=== PATIENT | female | born 1930 | race Caucasian/White ===

== ENCOUNTER 2017-06-24 23:58 | Observation (INO) ==
[2017-06-25] MEDS ORDERED: Nitroglycerin 0.4 MG TAB.SUBL SL ONE (00:31)
[2017-06-25] MEDS ORDERED: Aspirin 81 MG TAB.CHEW PO ONE (00:31)
[2017-06-25] MEDS ORDERED: 0.9 % Sodium Chloride 500 ML IVC ONE (00:31)
--- NOTE | 2017-06-25 00:36 | Emergency Department Note ---
Disposition Clinical Impression: Chest pain Qualifiers: Chest pain type: unspecified Qualified Code(s): R07.9 - Chest pain, unspecified Afib Qualifiers: Atrial fibrillation type: unspecified Qualified Code(s): I48.91 - Unspecified atrial fibrillation Hypertension Qualifiers: Hypertension type: unspecified Qualified Code(s): I10 - Essential (primary) hypertension Disposition: Admitted As Inpatient Condition: Fair Time of Disposition: 01:56 Chest Pain HPI - General Chief Complaint: ED Chest Pain Stated Complaint: cp/dizzy/high blood pressure Time Seen by Provider: 06/25/17 00:16 Source: patient Mode of arrival: ambulatory Limitations: no limitations Vital Signs Reviewed: Yes Nursing Notes Reviewed: Yes - History of Present Illness HPI Narrative: 86-year-old female history of A. fib, CVA in the past on an oral anticoagulant presents for evaluation of chest pain dizziness and high blood pressure. Patient states she has had intermittent chest pain over the past couple days but noted an episode today. Describes this chest heaviness nonexertional with associated left arm pain. Patient states that the pain has since resolved. Patient also has dizziness upon standing. Patient states that she feels unsteady on her feet. Is on a blood thinner but denies any dark tarry stools or blood in the stool. Patient does state she has a history of GI bleed in the past requiring surgical resection of her bowel. Patient denies any dyspnea. Patient does note some nausea but no vomiting or diaphoresis. Severity scale (1-10): 2 - Related Data Home Medications Medication Instructions Recorded Confirmed Lisinopril [Zestril] 10 mg PO DAILY 12/29/15 04/13/17 Nitroglycerin [Nitrostat] 0.4 mg SL AD PRN 12/29/15 04/13/17 Pravastatin Sodium [Pravachol] 40 mg PO DAILY 12/29/15 04/13/17 Apixaban [Eliquis] 5 mg PO BID 01/30/17 04/13/17 Metoprolol XL (24 HR) Succ [Toprol 50 mg PO DAILY 02/01/17 04/13/17 Xl] Allergies Allergy/AdvReac Type Severity Reaction Status Date / Time Penicillins Allergy Hives Verified 04/13/17 13:53 All systems ED: reviewed and negative except as stated. Constitutional: Denies: fever Cardiovascular: Reports: chest pain Respiratory: Reports: dyspnea. Denies: cough Gastrointestinal: Reports: nausea. Denies: abdominal pain, vomiting Chest Pain PMH - Past Medical History Medical history: Reports: cancer, CHF, CVA, hyperlipidemia, hypertension Surgical history: Reports: appendectomy, cholecystectomy, hysterectomy Psychiatric history: Reports: no psych history - Social History Smoking Status: Never smoker Alcohol use: Reports: none Drug use: Reports: none Physical Exam - General Limitations: no limitations General appearance: alert, in no apparent distress - Head Head exam: atraumatic, normocephalic, normal inspection - Eye Eye exam: Present: normal appearance, PERRL, EOMI - ENT ENT exam: normal exam - Neck Neck exam: Present: normal inspection - Chest Chest inspection: Present: normal inspection - Respiratory Respiratory exam: Present: normal lung sounds bilaterally. Absent: respiratory distress - Cardiovascular Cardiovascular exam: Present: regular rate, normal rhythm. Absent: systolic murmur - Abdominal Exam Abdominal exam: Present: soft, Non-Tender - Extremities Exam Extremities exam: Present: normal inspection, pedal edema (Trace) - Back Exam Back exam: Present: normal inspection - Neurological Exam Neurological exam: Present: alert, oriented X3, CN II-XII intact - Skin Skin exam: Present: warm, dry, intact, normal color Course Course Narrative: Patient seen and examined. Patient appears in no acute distress. Patient does have a concerning history of chest pain. Patient will get nitroglycerin and aspirin. Patient will likely require admission for further evaluation. Vital Signs Temperature 98.3 F 06/25/17 00:06 Pulse Rate 103 06/25/17 00:06 Respiratory Rate 16 06/25/17 00:06 Blood Pressure 187/127 06/25/17 00:06 O2 Sat by Pulse Oximetry 97 06/25/17 00:06 Temperature 98.3 F 06/25/17 00:06 Pulse Rate 81 06/25/17 02:00 Respiratory Rate 16 06/25/17 02:00 Blood Pressure 178/108 06/25/17 02:00 O2 Sat by Pulse Oximetry 94 06/25/17 02:00 Oxygen Delivery Oxygen Delivery Nasal Cannula Chest Pain - MDM Narrative Medical decision making narrative: 86-year-old female patient for evaluation of chest pain, dizziness and high blood pressure. Patient does have a history of A. fib and was noted to be A. fib with borderline tachycardia however has remained hemodynamically stable in the ER. Patient's been describing several days intermittently of chest heaviness. Patient noted worsening heaviness today which lasted a resolve spontaneously. Associated with some left arm pain. Patient denied needing diaphoresis or vomiting. Patient is on Eliquis for the A. fib. Given the patient's atypical chest pain earlier today the patient would likely need a more thorough cardiopulmonary evaluation with a stress test. Patient's dizziness appears to be related to position and standing. Likely secondary to A. fib and a regular rhythm. Patient did not get a head CT as she describes no episodes of trauma and has a nonfocal exam. - Lab Data Lab results reviewed: Yes I reviewed the patient's lab results. Result diagrams: 06/25/17 00:29 06/25/17 00:29 Lab Results 06/25/17 06/25/17 06/25/17 Range/Units 00:29 00:29 00:29 WBC 6.1 (4.3-11.1) K/mcL RBC 4.37 (3.82-4.97) M/mcL Hgb 13.1 (11.5-15.4) g/dL Hct 39.6 (35.3-44.9) % MCV 90.6 (83.0-100.0) fL MCH 30.0 (28.0-33.3) pg MCHC 33.1 (31.6-35.5) g/dL RDW 14.1 (11.5-14.5) % Plt Count 158 (140-400) K/mcL MPV 10.5 (9.4-12.4) fL Immature Gran % 0.3 (0-4) % Seg Neutrophils % 73.4 % Lymphocytes % 20.3 % Monocytes % 5.4 % Eosinophils % 0.3 % Basophils % 0.3 % Neutrophils # 4.5 (1.6-8.9) K/mcL Lymphocytes # 1.2 (0.6-4.6) K/mcL Monocytes # 0.3 (0.0-1.3) K/mcL Eosinophils # 0.0 (0.0-0.6) K/mcL Basophils # 0.0 (0.0-0.2) K/mcL PT 14.3 H (9.4-12.1) Seconds INR 1.3 APTT 30.8 (26.0-36.0) Seconds Sodium (136-145) mEq/L Potassium (3.5-5.1) mEq/L Chloride (98-107) mEq/L Carbon Dioxide (23-29) mEq/L BUN (8-23) mg/dL Creatinine (0.60-1.20) mg/dL Est GFR ( Amer) (> 60) Est GFR (Non-Af Amer) (> 60) BUN/Creatinine Ratio (6-26) Glucose (70-105) mg/dL Calculated Osmolality (280-300) Calcium (8.6-10.3) mg/dL Troponin I (< 0.04) ng/mL B-Natriuretic Peptide 221 H (Less than 100) pg/mL Urine Color (Yellow) Urine Clarity (Clear) Urine pH (5.0-8.0) pH Units Ur Specific [place] (1.010-1.025) Urine Protein (Neg-Trace) mg/dL Urine Glucose (UA) (Normal) mg/dL Urine Ketones (Negative) mg/dL Urine Blood (Negative) Urine Nitrite (Negative) Urine Bilirubin (Negative) Urine Urobilinogen (Normal) mg/dL Ur Leukocyte Esterase (Negative) Urine Microscopic RBC (0-3) per hpf Urine Microscopic WBC (0-3) per hpf Ur Squamous Epith Cells (None-Few) per lpf Urine Bacteria (None-Few) per hpf Hyaline Casts (None-Few) per lpf 06/25/17 06/25/17 06/25/17 Range/Units 00:29 00:29 01:09 WBC (4.3-11.1) K/mcL RBC (3.82-4.97) M/mcL Hgb (11.5-15.4) g/dL Hct (35.3-44.9) % MCV (83.0-100.0) fL MCH (28.0-33.3) pg MCHC (31.6-35.5) g/dL RDW (11.5-14.5) % Plt Count (140-400) K/mcL MPV (9.4-12.4) fL Immature Gran % (0-4) % Seg Neutrophils % % Lymphocytes % % Monocytes % % Eosinophils % % Basophils % % Neutrophils # (1.6-8.9) K/mcL Lymphocytes # (0.6-4.6) K/mcL Monocytes # (0.0-1.3) K/mcL Eosinophils # (0.0-0.6) K/mcL Basophils # (0.0-0.2) K/mcL PT (9.4-12.1) Seconds INR APTT (26.0-36.0) Seconds Sodium 140 (136-145) mEq/L Potassium 4.1 (3.5-5.1) mEq/L Chloride 108 H (98-107) mEq/L Carbon Dioxide 25 (23-29) mEq/L BUN 21 (8-23) mg/dL Creatinine 1.09 (0.60-1.20) mg/dL Est GFR ( Amer) 57 L (> 60) Est GFR (Non-Af Amer) 47 L (> 60) BUN/Creatinine Ratio 19 (6-26) Glucose 122 H (70-105) mg/dL Calculated Osmolality 294 (280-300) Calcium 9.5 (8.6-10.3) mg/dL Troponin I < 0.03 (< 0.04) ng/mL B-Natriuretic Peptide (Less than 100) pg/mL Urine Color Yellow (Yellow) Urine Clarity Clear (Clear) Urine pH 7.0 (5.0-8.0) pH Units Ur Specific [place] 1.012 (1.010-1.025) Urine Protein Negative (Neg-Trace) mg/dL Urine Glucose (UA) Normal (Normal) mg/dL Urine Ketones Negative (Negative) mg/dL Urine Blood Negative (Negative) Urine Nitrite Negative (Negative) Urine Bilirubin Negative (Negative) Urine Urobilinogen Normal (Normal) mg/dL Ur Leukocyte Esterase Small H (Negative) Urine Microscopic RBC 0-3 (0-3) per hpf Urine Microscopic WBC 5-15 H (0-3) per hpf Ur Squamous Epith Cells Moderate H (None-Few) per lpf Urine Bacteria None Seen (None-Few) per hpf Hyaline Casts None Seen (None-Few) per lpf - Radiology Data Radiology results reviewed: Yes I reviewed the patient's radiology results. Chest X-Ray 06/25/17 00:31 IMPRESSION: No acute disease. D/ / Yinka Vegas MD / Yinka Vegas MD Interpreting Provider: Yinka Vegas MD - EKG Data EKG attestation: Yes I reviewed and interpreted this EKG. Rate: tachycardia Rhythm: A.Fib [place]/QRS: left axis deviation Q waves: III T wave inversions noted in: v1 Interpretation: no acute changes, nonspecific ST-T wave changes Heart Score - Score History: Moderately Suspicious EKG: Non Specific repolarisation Disturbance Age: Greater than 65 Risk Factors: 1-2 risk factors Troponin: Less than normal limit HEART Score Total: 5 S.B.A.R. - S.B.A.RKanwal Situation: Demographics Background: Presenting Complaint Assessment: Vital Signs, Course and respsone to treatment, Patient/Family Expectation Recommendation: Barrier(s) to disposition, Recommendation based on pending studies, treatments, or consults S.B.A.R. Report Given to: Dr. Alexandre Donovan Repor Time: 01:56 Attestation Statement - Attestation Attestation: I, Cisco East DO, examined this patient [id number] and my medical decision-making was reviewed with Dr. Javon Hall, Resident Physician. I agree with the documented findings, disposition and treatment plan as described except to the extent set forth below. Please see my progress notes for details. 86-year-old female presents emergency room complaining of chest discomfort pain and generalized malaise. She denies any recent illnesses fevers chills nausea vomiting or diarrhea. She also describes some intermittent dizziness and high blood pressure. Currently denying chest pain. Denies any trauma or injury. She is currently on request and metoprolol secondary to elevated blood pressure and atrial fibrillation. Vital signs are stable on presentation except for slightly elevated heart rate in the 95-105 pulse range. Blood pressure was elevated at 185-195 systolic in the emergency room. Physical exam shows a well- appearing pleasant lean confused 86-year-old female. Head is atraumatic pupils are equal round reactive to light extraocular muscles are intact. Her lungs are clear heart is regular. Abdomen is soft nontender nondistended with no guarding no rigidity and no peritoneal-like symptoms. She moves all 4 extremities without any difficulty. She ambulated into the emergency room. Family says that she is acting appropriately at this time. Secondary to the patient having chest discomfort and pain along with the atrial fibrillation and intermittent RVR patient will have detailed cardiac evaluation completed today include a chest x-ray labs including screening N abnormalities troponin. EKG was collected showing stable evaluation but patient does have what appears to be atrial fibrillation. Vital signs remain stable with elevated blood pressure. Disposition most of admission the hospital for definitive management. See detailed documentation of the physical exam, medical intervention, medical decision-making and disposition of the resident physician' s note. No critical care provider this patient's treatment course at this time. 0200 Patient has had no acute signs of cardiac arrhythmia at this point onset is stable A. fib. Patient will be admitted for definitive management of chest pain. Vital signs stable. Workup has been unremarkable. Symptomatic control to be completed in the hospital setting. No other recommendations from the hospitalist at this time. Slightly elevated BNP appears to be chronic. No acute intervention required at this point
[2017-06-25 00:39] LABS: Basophils % 0.3 %; Eosinophils % 0.3 %; Hematocrit 39.6 % (35.3-44.9); Hemoglobin 13.1 g/dL (11.5-15.4); Immature Granulocytes % 0.3 % (0-4); Lymphocytes # 1.2 K/mcL (0.6-4.6); Lymphocytes % 20.3 %; Mean Corpuscular HGB Conc 33.1 g/dL (31.6-35.5); Mean Corpuscular Volume 90.6 fL (83.0-100.0); Mean Platelet Volume 10.5 fL (9.4-12.4); Monocytes # 0.3 K/mcL (0.0-1.3); Monocytes % 5.4 %; Neutrophils # 4.5 K/mcL (1.6-8.9); Platelet Count 158 K/mcL (140-400); Red Blood Count 4.37 M/mcL (3.82-4.97); Red Cell Distribution Width 14.1 % (11.5-14.5); Segmented Neutrophils % 73.4 %
[2017-06-25 00:47] LABS: INR 1.3; Prothrombin Time 14.3 Seconds (9.4-12.1)
[2017-06-25 00:49] LABS: Activated Partial Thrombo Time 30.8 Seconds (26.0-36.0)
[2017-06-25 00:56] LABS: Calcium 9.5 mg/dL (8.6-10.3); Potassium 4.1 mEq/L (3.5-5.1)
[2017-06-25 01:21] LABS: Bilirubin,Urine Negative (Negative); Blood,Urine Negative (Negative); Clarity,Urine Clear (Clear); Color,Urine Yellow (Yellow); Glucose,Urine (UA) Normal (Normal); Ketones,Urine Negative (Negative); Leukocyte Esterase,Urine Small (Negative); Nitrite,Urine Negative (Negative); Protein,Urine Negative (Neg-Trace); Specific Gravity,Urine 1.012 (1.010-1.025); Urobilinogen,Urine Normal (Normal)
[2017-06-25 01:23] LABS: Bacteria,Urine None Seen per hpf (None-Few); Hyaline Casts,Urine None Seen per lpf (None-Few); RBC,Urine 0-3 per hpf (0-3); Squamous Epithelial Cell,Urine Moderate per lpf (None-Few)
--- NOTE | 2017-06-25 03:12 | Internal Med History&Physical ---
Date of Encounter: 06/25/17 Time of Encounter: 02:30 Assessment and Plan (1) Chest pain Current visit: Yes Status: Acute Qualifiers: Chest pain type: unspecified Qualified Code(s): R07.9 - Chest pain, unspecified (2) Atrial fibrillation Current visit: Yes Status: Chronic Qualifiers: Atrial fibrillation type: paroxysmal Qualified Code(s): I48.0 - Paroxysmal atrial fibrillation (3) History of stroke Current visit: No Status: Chronic Code(s): Z86.73 - Personal history of transient ischemic attack (TIA), and cerebral infarction without residual deficits (4) Diabetes Current visit: No Status: Chronic Qualifiers: Diabetes mellitus type: type 2 Diabetes mellitus complication status: with kidney complications Diabetes mellitus complication detail: with chronic kidney disease 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 Grayson is a 86 year old female 86-year-old woman presented in the ER complaining of retrosternal chest discomfort pain which she describes as dull and radiating to her neck. She uncertain of associated sympoms. She denies fevers chills nausea vomiting or diarrhea. Her BP was elevated prior to coming to the ER. Her ECG shows A-fiv with a rate in the low 100s and her initial Troponin is wnl. Her BP was initially elevated as high as 185-195 systolic but is now controlled and her chest pain is resolved. She is now hemodynamically stable and will be admitted for further w/u including a stress test. Past Med Surg Social Fam HX - Past Medical History Medical history: cancer, CHF, CVA, hyperlipidemia, hypertension Psychiatric history: no psych history - Past Surgical History Surgical History: appendectomy, cholecystectomy, hysterectomy - Social History Smoking Status: Never smoker Smokeless Tobacco Status: No Alcohol use: none Drug use: none - Family History Father Adopted: Yes Family Member Ethnicity: Non- Living Status: Age at : 57 Cause of : heart attack Hx Family Cardiac Disorders: Yes Internal Medicine - H&P: Meds Lisinopril [Zestril] 10 mg PO DAILY 12/29/15 [History] Nitroglycerin [Nitrostat] 0.4 mg SL AD PRN 12/29/15 [History] Pravastatin Sodium [Pravachol] 40 mg PO DAILY 12/29/15 [History] Apixaban [Eliquis] 5 mg PO BID 01/30/17 [History] Metoprolol XL (24 HR) Succ [Toprol Xl] 50 mg PO DAILY 02/01/17 [History] 3 Allergy/AdvReac Type Severity Reaction Status Date / Time Penicillins Allergy Hives Verified 04/13/17 13:53 All Systems PM: A 10-system review of systems was performed and is negative for pertinent findings except as documented above in the HPI. - Constitutional Constitutional: no anorexia, no chills, no falls, no malaise, no weight gain - EENT Eyes: no decreased night vision, no diplopia, no discharge, no loss of vision, no photophobia, no spots in vision - Cardiovascular Cardiovascular ROS IM: lightheadedness, no claudication, no diaphoresis, no dyspnea on exertion, no paroxysmal nocturnal dyspnea, no syncope - Respiratory Respiratory: no cough, no dyspnea, no wheezing, no stridor, no pain on inspiration, no pain with cough - Gastrointestinal Gastrointestinal: no belching, no change in bowel habits, no change in stool character, no coffee ground emesis, no diarrhea, no dysphagia, no hematemesis, no hematochezia, no loose stools, no vomiting - Musculoskeletal Musculoskeletal ROS IM: no atrophy, no back pain, no limited range of motion, no muscle weakness, no numbness, no stiffness - Integumentary Integumentary IM: no non-healing lesions, no rash - Neurological Neurological ROS: no abnormal hearing, no abnormal speech, no lack of coordination, no memory loss, no paresthesias - Psychiatric Psychiatric: no auditory hallucinations, no behavioral changes, no difficulty concentrating, no homicidal ideation, no suicidal ideation - Hematologic/Lymphatic Hematologic/Lymphatic: easy bruising - Allergic/Immunologic Allergic/Immunologic: no throat swelling, no wheezing, no GI upset with certain foods - Constitutional Vitals: Temp Pulse Resp BP Pulse Ox 98.3 F 92 16 163/89 98 06/25/17 00:06 06/25/17 02:21 06/25/17 02:21 06/25/17 02:21 06/25/17 02:21 Internal Med - H&P Results - Labs CBC & Chem 7: 06/25/17 00:29 06/25/17 00:29
[2017-06-25 05:16] LABS: Basophils % 0.4 %; Eosinophils % 0.7 %; Hematocrit 33.7 % (35.3-44.9); Immature Granulocytes % 0.2 % (0-4); Lymphocytes # 1.5 K/mcL (0.6-4.6); Lymphocytes % 27.7 %; Mean Corpuscular HGB Conc 33.2 g/dL (31.6-35.5); Mean Corpuscular Volume 90.3 fL (83.0-100.0); Mean Platelet Volume 10.5 fL (9.4-12.4); Monocytes # 0.4 K/mcL (0.0-1.3); Monocytes % 8.1 %; Neutrophils # 3.4 K/mcL (1.6-8.9); Platelet Count 133 K/mcL (140-400); Red Blood Count 3.73 M/mcL (3.82-4.97); Segmented Neutrophils % 62.9 %
[2017-06-25 05:19] LABS: Hemoglobin 11.2 g/dL (11.5-15.4); INR 1.4; Prothrombin Time 15.5 Seconds (9.4-12.1)
[2017-06-25 05:31] LABS: Albumin 3.6 g/dL (3.5-5.7); Albumin/Globulin Ratio 1.6 (1.1-2.2); Bilirubin,Total 0.6 mg/dL (0.3-1.0); Calcium 8.9 mg/dL (8.6-10.3); Globulin 2.2 g/dL (2.4-3.5); Magnesium 2.1 mg/dL (1.6-2.6); Potassium 3.8 mEq/L (3.5-5.1); Total Protein 5.8 g/dL (6.4-8.9)
[2017-06-25] MEDS ORDERED: Regadenoson 0.4 MG/5 ML SYRINGE IVP ONE (06:04)
[2017-06-25] MEDS ORDERED: Apixaban 5 MG TABLET PO SCH (09:15)
[2017-06-25] MEDS ORDERED: Metoprolol XL (24 HR) Succ 50 MG TAB.ER.24H PO SCH (09:15)
--- NOTE | 2017-06-25 09:44 | Electrocardiograph Report ---
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
[2017-06-25] MEDS ORDERED: Metoprolol XL (24 HR) Succ 50 MG TAB.ER.24H PO STA (13:39)
[2017-06-25 15:23] VITALS: BP 169/95
[2017-06-25 16:41] LABS: Adenovirus Not Detected (Not Detect); Bordetella Pertussis Not Detected (Not Detect); Chlamydophila pneumoniae Not Detected (Not Detect); Coronavirus 229E Not Detected (Not Detect); Coronavirus HKU1 Not Detected (Not Detect); Coronavirus NL63 Not Detected (Not Detect); Coronavirus OC43 Not Detected (Not Detect); Human Metapneumovirus Not Detected (Not Detect); Human Rhinovirus/Enterovirus Not Detected (Not Detect); Influenza A Subtype 2009 H1 Not Detected (Not Detect); Influenza A Untypeable Not Detected (Not Detect); Influenza B Not Detected (Not Detect); Mycoplasma pneumoniae Not Detected (Not Detect); Parainfluenza Virus 1 Not Detected (Not Detect); Parainfluenza Virus 2 Not Detected (Not Detect); Parainfluenza Virus 3 Not Detected (Not Detect); Parainfluenza Virus 4 Not Detected (Not Detect); Respiratory Syncytial Virus Not Detected (Not Detect)
--- NOTE | 2017-06-25 17:06 | Discharge Summary ---
Orders not resulted at time of discharge: Pending orders 06/25/17 03:00 NM kelli perf SPECT multi [NM] Routine Date of Encounter: 06/25/17 Time of Encounter: 10:00 - Discharge Diagnosis (1) Chest pain Priority: Primary Status: Acute Qualifiers: Chest pain type: unspecified Qualified Code(s): R07.9 - Chest pain, unspecified (2) Chronic kidney disease Priority: Secondary Status: Chronic Qualifiers: Chronic kidney disease stage: stage 3 (moderate) Qualified Code(s): N18.3 - Chronic kidney disease, stage 3 (moderate) (3) Atrial fibrillation Priority: Secondary Status: Chronic Qualifiers: Atrial fibrillation type: paroxysmal Qualified Code(s): I48.0 - Paroxysmal atrial fibrillation (4) Hypertension Priority: Secondary Status: Chronic Qualifiers: Hypertension type: essential hypertension Qualified Code(s): I10 - Essential (primary) hypertension (5) Diabetes Priority: Secondary Status: Chronic Qualifiers: Diabetes mellitus type: type 2 Diabetes mellitus complication status: with kidney complications Diabetes mellitus complication detail: with chronic kidney disease 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 Grayson is a 86 year old female with the above medical problems, was admitted with chest pressure, dizziness and generalized weakness. She was noted to have elevated blood pressure in the emergency room. Initial labs including serial troponins remained normal. Telemetry monitoring was uneventful , heart rate was controlled. Patient was restarted on her home antihypertensives and her blood pressure was gradually better controlled. She continued to have systolic blood pressure in 160s, home dose of blood pressure medications could not be accurately confirmed initially and she did receive the correct dose prior to discharge. Respiratory viral panel was done as she reported flulike symptoms, which was negative. Echocardiogram showed preserved ejection fraction, mild concentric LVH, severe left atrial dilation, indeterminate left ventricular diastolic function. Nuclear stress test was completed, negative for ischemia or infarct. Family was concerned about recurrence of symptoms, I spoke to patient's daughter on the phone, explained that patient remained hemodynamically stable during this hospitalization, encouraged to keep her hydrated and follow up with PCP. She will need to be evaluated in the emergency room for recurrent significant chest pain, dizziness, palpitations or shortness of breath. Discharge discussed with: patient, family - Time Spent with Patient Total time spent providing and/or coordinating discharge services: Greater than 30 minutes (40 min) - Discharge Medications Home Medications: Nitroglycerin [Nitrostat] 0.4 mg SL AD PRN 12/29/15 [History] Pravastatin Sodium [Pravachol] 40 mg PO DAILY 12/29/15 [History] Apixaban [Eliquis] 5 mg PO BID 01/30/17 [History] Lisinopril [Zestril] 40 mg PO DAILY 06/25/17 [History] Metoprolol Succinate [Toprol Xl] 100 mg PO DAILY 06/25/17 [History] Allergies/Adverse Reactions: 3 Allergy/AdvReac Type Severity Reaction Status Date / Time Penicillins Allergy Hives Verified 04/13/17 13:53 Date of admission: 06/25/17 02:00 Primary care physician: Miki Myers, Discharging clinician: Albina Louis Anticipated date of discharge: 06/25/17 - Constitutional Vitals: Temp Pulse Resp BP Pulse Ox 97.8 F 76 14 169/95 100 06/25/17 15:16 06/25/17 15:16 06/25/17 15:16 06/25/17 15:16 06/25/17 15:16 General appearance: Present: A&O X 3, answers questions appropriately - Cardiovascular Cardiovascular exam: Present: RRR, +S1, +S2. Absent: diastolic murmur, gallop, rubs, systolic murmur - Patient Status Disposition: Home, Self-Care Condition: Fair Functional capacity at discharge: independent ambulation Overall status at discharge: patient is progressing back to baseline - Discharge Instructions Instructions: Atrial Fibrillation (DC), Chest Pain (DC), Chronic Hypertension ( DC) Follow Up With: Miki Myers DO [Primary Care Provider] - Additional Instructions: F/up with PCP in 1-2 weeks - Diet and Activity Activity: resume usual activities as tolerated Diet: diabetic diet, low fat, low cholesterol, low salt diet
[2017-06-26] MEDS ORDERED: Metoprolol XL (24 HR) Succ 50 MG TAB.ER.24H PO SCH (09:00)
[2017-06-26] MEDS ORDERED: Lisinopril 20 MG TABLET PO SCH (09:00)
== END 2017-06-25 18:00 | disposition home or self-care (01) ==
LOC: 3ANU 23:58 → EMEROO 23:58 → 3ANU 06-25 02:28
PROVIDERS: ADMIT Internal Medicine; ATTEND Internal Medicine